=== PATIENT | male | born 1945 | race African-American/Black ===

== ENCOUNTER 2017-12-06 22:46 | Emergency (ER) | payer MEDICARE, MEDICAID ==
[~2017-12-06] VITALS: Ht 180.3 cm; Wt 63.2 kg
[~2017-12-06 22:46] MED LIST: ASPIR-LOW81 MG PO; ASPIR-LOX325 MG PO; ASPIRIN 81M81 MG/TA2 PO; BENADRYL; BENADRYL25 M2 PO; DIPHENHYDRAMINE25 M1 PO; LISINOPRIL10 MG PO; MULTIPLE VITAMI1 T14 PO; MVI PO; NABUMETONE500 MG PO; PERCOCET 500 MG1 TAB PO; PLAVIX300 MG PO; PRILOSEC PO; VITAMIN E PO
[2017-12-06 22:48] VITALS: BP 152/63; PULSE 100; TEMP 97
[2017-12-07] MEDS ORDERED: PLAVIX 75MG TAB75 MG PO (00:02)
[2017-12-07] MEDS ORDERED: LIPITOR 10MG10 MG PO (00:02)
[2017-12-07] MEDS ORDERED: NORVASC 5MG5 MG/TAB PO (00:02)
[2017-12-07 00:32] LABS: HEMOGLOBIN 11.1 g/dl (13.5-18.0); MEAN CELL VOLUME 95 fl (80.0-100.0); MEAN CORPUSCULAR HEMOGLOBIN 32 pg (27.0-31.0); MEAN CORPUSCULAR HGB CONC 33 g/dl (33.0-37.0); MEAN PLATELET VOLUME 10.2 fl (7.4-10.4); PLATELET COUNT 186 K/mm3 (130-400); REDCELL DISTRIBUTION WIDTH-CV 12.1 % (11.5-14.5)
[2017-12-07 00:38] LABS: HEMATOCRIT 33.3 % (42.0-52.0)
[2017-12-07 00:43] LABS: ALANINE AMINOTRANSFERASE 25 U/L (21-72); ALBUMIN 4.3 gm/dL (3.5-5.0); ALKALINE PHOSPHATASE 96 U/L (50-136); ANION GAP 10 mmol/L (7-16); AST,SGOT 25 U/L (15-37); BILIRUBIN,TOTAL 1.4 mg/dL (0.0-1.0); BLOOD UREA NITROGEN 13 mg/dL (9-20); CALCIUM 9.4 mg/dL (8.4-10.2); CARBON DIOXIDE 26 mmol/L (22-30); CHLORIDE 96 mmol/L (98-107); CREATININE, serum 1.39 mg/dL (0.66-1.25); GLUCOSE 111 mg/dL (74-106); LIPASE 31 U/L (23-300); POTASSIUM 4.8 mmol/L (3.4-5.0); SODIUM 131 mmol/L (137-145); TOTAL PROTEIN 7.6 gm/dL (6.4-8.2)
[2017-12-07 00:47] LABS: ALCOHOL(ethanol),MEDICAL < 10 mg/dL
[2017-12-07 00:53] LABS: TROPONIN-I < 0.012 ng/mL (0.000-0.034)
[2017-12-07 01:47] LABS: BAND 5 % (0-10); EOSINOPHIL 2 % (0-4); HYPOCHROMIA 1+; LYMPHOCYTE 5 % (20.0-51.0); METAMYELOCYTE 2 % (0-0); NEUTROPHILS 76 % (42.0-75.2); PLATELET ESTIMATE NORMAL (NORMAL)
[2017-12-07 01:49] LABS: STOMATOCYTE 1+
[2017-12-07 03:20] LABS: COLLECTION METHOD CLEAN CATCH
[2017-12-07 03:25] LABS: PH 6 (5-8); SQUAMOUS EPITHELIAL 0-2 /hpf; URINE APPEARANCE Clear; URINE BACTERIA None Seen /hpf; URINE BILIRUBIN Negative (NEGATIVE); URINE BLOOD Negative (NEGATIVE); URINE COLOR Yellow; URINE GLUCOSE Negative (NEGATIVE); URINE KETONE Trace (NEGATIVE); URINE LEUKOCYTE ESTERASE Negative (NEGATIVE); URINE NITRATE Negative (NEGATIVE); URINE PROTEIN(semi-quant) Negative (NEGATIVE); URINE RBC 0-2 /hpf; URINE UROBILINOGEN Negative (NEGATIVE)
[2017-12-07] MEDS ORDERED: FLEXERIL5 MG PO (05:03)
[2017-12-07] MEDS ORDERED: CEFTIN500 MG PO (05:03)
[2017-12-07] MEDS ORDERED: NORCO 325 MG-51 TAB PO (05:03)
[2017-12-07] MEDS ORDERED: PROTONIX 40MG T40 MG PO (05:03)
[2017-12-07] MEDS ORDERED: ZOFRAN ODT4 MG PO (05:03)
== END 2017-12-07 06:20 | disposition home or self-care (01) ==
LOC: COL.ER 22:46
PROVIDERS: Emergency Medicine
DX: K29.70 Gastritis, unspecified, without bleeding (principal); G89.29 Other chronic pain; M54.5 Low back pain; I10 Essential (primary) hypertension; F17.210 Nicotine dependence, cigarettes, uncomplicated; Z86.73 Personal history of transient ischemic attack (TIA), and cerebral infarction without residual deficits; Z79.02 Long term (current) use of antithrombotics/antiplatelets
CPT/HCPCS: J0696; J2405; J3010; J7030

== ENCOUNTER 2020-07-27 14:15 | Outpatient (RCR) | payer MEDICARE, MEDICAID ==
[~2020-07-27 14:15] MED LIST changes: +CEFTIN500 MG PO; +FLEXERIL5 MG PO; +LIPITOR 10MG10 MG PO; +NORCO 325 MG-51 TAB PO; +NORVASC 5MG5 MG/TAB PO; +PLAVIX 75MG TAB75 MG PO; +PROTONIX 40MG T40 MG PO; +ZOFRAN ODT4 MG PO
[2020-10-06] MEDS ORDERED: MORPHINE 1515 MG/TAB PO (06:43)
[2020-10-06] MEDS ORDERED: ISTALOL 2.5 ML2.5 ML OU (06:48)
[2020-10-06] MEDS ORDERED: HYDROCORTISONE30 G3 TP (09:31)
== END 2020-10-04 | disposition home or self-care (01) ==
LOC: MKS.ESL.PT
DX: M75.101 Unspecified rotator cuff tear or rupture of right shoulder, not specified as traumatic (principal); M54.5 Low back pain; Z98.890 Other specified postprocedural states

== ENCOUNTER → 2020-10-06 | Outpatient (CLI) | payer MEDICARE, MEDICAID ==
[~2020-10-06] VITALS: Ht 180.3 cm; Wt 57.7 kg
[~2020-10-06] MED LIST changes: +HYDROCORTISONE30 G3 TP; +ISTALOL 2.5 ML2.5 ML OU; +MORPHINE 1515 MG/TAB PO
[2020-10-06 09:32] VITALS: BP 140/64; PULSE 69
--- NOTE | 2020-10-06 10:17 | NUR ---
PROCEDURE WAS CNACELLED BY DR MACK
== END ==
LOC: COL.RAD 08:00
DX: Z01.812 Encounter for preprocedural laboratory examination (principal); K86.89 Other specified diseases of pancreas; K55.1 Chronic vascular disorders of intestine; I87.1 Compression of vein
CPT/HCPCS: Q9967

== ENCOUNTER 2021-04-05 17:54 | Inpatient (IN) | payer MEDICARE, MEDICAID ==
[~2021-04-05] VITALS: Ht 177.8 cm; Wt 46.9 kg
[2021-04-05 18:55] LABS: BASO % 0.5 % (0.0-2.0); EOS % 0.3 % (0.0-4.0); GRAN # 2.3 K/mm3 (1.4-6.5); GRAN % 61.3 % (42.2-75.2); HEMOGLOBIN 11.5 g/dl (13.5-18.0); LYMPH # 1.2 K/mm3 (1.2-3.4); LYMPH % 30.3 % (20.0-51.0); MEAN CELL VOLUME 95 fl (80.0-100.0); MEAN CORPUSCULAR HEMOGLOBIN 31 pg (27-31); MEAN CORPUSCULAR HGB CONC 33 g/dl (33.0-37.0); MEAN PLATELET VOLUME 11.6 fl (7.4-10.4); MONO # 0.3 K/mm3 (0.1-0.6); MONO % 7.1 % (1.7-9.3); PLATELET COUNT 124 K/mm3 (130-400); RED BLOOD COUNT 3.74 M/mm3 (4.20-5.60); REDCELL DISTRIBUTION WIDTH-CV 14.5 % (11.5-14.5)
[2021-04-05 18:57] LABS: HEMATOCRIT 35.4 % (42.0-52.0)
[2021-04-05 19:14] LABS: ALBUMIN 4.1 gm/dL (3.4-4.8); BILIRUBIN,TOTAL 2.4 mg/dL (0.2-1.2); CALCIUM 8.9 mg/dL (8.4-10.2); CREATININE, serum 1.63 mg/dL (0.72-1.25); POTASSIUM 4.9 mmol/L (3.5-4.5); TOTAL PROTEIN 7.2 gm/dL (6.2-8.1)
[2021-04-05 21:01] LABS: MAGNESIUM 2.5 mg/dL (1.6-2.6); PHOSPHOROUS 3.6 mg/dL (2.3-4.7)
[2021-04-05 22:22] LABS: COLLECTION METHOD CLEAN CATCH
[2021-04-05 22:36] LABS: PH 6 (5-8); URINE APPEARANCE Clear (CLEAR/HAZY); URINE BACTERIA None Seen /hpf (NONE SEEN); URINE BILIRUBIN Negative (NEGATIVE); URINE BLOOD Negative (NEGATIVE); URINE COLOR Yellow (YELLOW); URINE GLUCOSE Negative (NEGATIVE); URINE KETONE 1+ (NEGATIVE); URINE LEUKOCYTE ESTERASE Negative (NEGATIVE); URINE NITRATE Negative (NEGATIVE); URINE PROTEIN(semi-quant) Negative (NEGATIVE); URINE RBC None Seen /hpf (0-2); URINE UROBILINOGEN Negative (NEGATIVE)
[2021-04-05] MEDS ORDERED: LIPITOR 40MG TA40 MG PO (23:38)
[2021-04-05] MEDS ORDERED: NEURONTIN300 MG/CAP PO (23:38)
[2021-04-05] MEDS ORDERED: ACULAR 10 ML10 ML OU (23:40)
[2021-04-05] MEDS ORDERED: PREDFORTE15ML OU (23:42)
[2021-04-06] VITALS (7 sets, daily range): BP systolic 118–145; BP diastolic 55–69; PULSE 52–87; TEMP 97.5–98.1
--- NOTE | 2021-04-06 05:53 | NUR ---
PT HAD AN UNEVENTFUL NIGHT. PT ARRIVED TO FLOOR VIA WHEELCHAIR AROUND 2230. PT FELL ASLEEP DURING INITIAL ADMISSION ASSESSMENT, PT HAS HEARING AIDS, BUT DO NOT SEEM TO WORK APPROPRIATELY. PT DENIES PAIN, PT SLEPT REST OF NIGHT. IV FLUIDS RUNNING. CALL LIGHT IN REACH, PT USES APPROPPRIATELY, PT IS VERY UNSTEADY ON FEET.
[2021-04-06 06:23] LABS: MEAN CELL VOLUME 95 fl (80.0-100.0); MEAN CORPUSCULAR HGB CONC 32 g/dl (33.0-37.0); MEAN PLATELET VOLUME 11.6 fl (7.4-10.4); PLATELET COUNT 97 K/mm3 (130-400); RED BLOOD COUNT 3.08 M/mm3 (4.20-5.60); REDCELL DISTRIBUTION WIDTH-CV 14.4 % (11.5-14.5)
[2021-04-06 06:32] LABS: HEMATOCRIT 29.2 % (42.0-52.0); HEMOGLOBIN 9.4 g/dl (13.5-18.0); MEAN CORPUSCULAR HEMOGLOBIN 31 pg (27-31)
[2021-04-06 06:37] LABS: CALCIUM 8.3 mg/dL (8.4-10.2); CREATININE, serum 1.28 mg/dL (0.72-1.25); POTASSIUM 4.2 mmol/L (3.5-4.5)
[2021-04-06 08:08] LABS: BAND 1 % (0-10); BASOPHIL 1 % (0-2); LYMPHOCYTE 25 % (20.0-51.0); NEUTROPHILS 63 % (42.0-75.2); PLATELET ESTIMATE DECREASED (NORMAL)
--- NOTE | 2021-04-06 09:46 | NUR ---
Call made to patient's son. He plans to visit today and agreed to talk with me at patient's bedside when he arrives.
--- NOTE | 2021-04-06 11:28 | NUR ---
THIS PATIENT IS VERY HARD OF HEARING. IT IS DIFFICULT TO HAVE HIM RESPOND DUE TO THIS. DESPITE HOW LOUD I DID GET, HE WAS STILL HAVING DIFFICULTY AND DID NOT ANSWER APPROPRIATELY UNTIL HE COULD HEAR WHAT WAS ASKED, THEN HE WAS ABLE TO ANSWER APPROPRIATELY. CONCERNS FOR LIMITED KNOWLEDGE BASED ON INABILITY TO HEAR US.
--- NOTE | 2021-04-06 13:04 | NUR ---
Met with patient and son Francisco Javier alone then again with Dr. Osborne. Patient very hard of hearing and unsure how much of the information he understood but we attempted to explain that the pancreatic cancer is advancing and there is no cure. Patient stated he was not comfortable making a decision on his own at this time and Francisco Javier stated he would talk with his sister and aunt about everything and get back to us. I explained hospice options and provided my contact information.
--- NOTE | 2021-04-06 14:40 | NUR ---
Commissary Agent contacted patient's son, Francisco Javier (ph#[phone]) to discuss discharge planning. Patient lives in [place] and Francisco Javier advised he lives with patient. Patient sees Dr. Milner for primary care and obtains medications from [facility], however Francisco Javier does not think patient has been taking his medications. Patient has a cane if needed and Francisco Javier advised patient has been mostly independent with ADLS, but is not as independent as he once was. Francisco Javier believes patient has been doing bed baths instead of getting into the tub or taking a shower. Francisco Javier does not believe patient has any Advance Directives. TEVIN left TEVIN Smith at patient's PCP office to check on any Advance Directives. There are none in EMR. Per Francisco Javier, patient is and has two children: Francisco Javier and Fabiola (ph#[phone]). Patient's children are his legal next of kin. Palliative Consult ordered. Francisco Javier advised that his father wants to think about his "final decision" over the weekend. Francisco Javier states he also is going to talk with his aunt and sister about goals of care. Discharge Plan: Unknown at this time, family is discussing goals of care with patient.
--- NOTE | 2021-04-06 15:53 | NUR ---
Scow Hand collaborated with TEVIN Smith at PCP office. Serina faxed over [facility]- which designates patient's son, Ho "Francisco Javier" Elvis and patient's sister, Gerhard. TEVIN placed copy on chart and updated palliative RNMarisa.
--- NOTE | 2021-04-06 20:30 | NUR ---
Initial shift assessment done- pt resting quietly,, very, very [place], hard to communicate with-- states he wants to sleep, states has some abd pain 2/10, Up to bathroom with one assist, steady on feet.
[2021-04-07 04:27] VITALS: BP 109/57; PULSE 66; TEMP 97.8
--- NOTE | 2021-04-07 05:14 | NUR ---
Quiet night- VSS, Up to bathroom with assist x3 during the night.
--- NOTE | 2021-04-07 07:01 | NUR ---
PT LAYING IN BED. DOES NOT NEED ANYTHING AT THIS TIME.
[2021-04-07 07:51] LABS: CALCIUM 8.5 mg/dL (8.4-10.2); CREATININE, serum 1.34 mg/dL (0.72-1.25); POTASSIUM 4.4 mmol/L (3.5-4.5)
[2021-04-07 08:11] LABS: BASO % 0.9 % (0.0-2.0); EOS % 0.9 % (0.0-4.0); GRAN # 2.3 K/mm3 (1.4-6.5); LYMPH # 1.5 K/mm3 (1.2-3.4); LYMPH % 35.1 % (20.0-51.0); MEAN CELL VOLUME 92 fl (80.0-100.0); MEAN CORPUSCULAR HGB CONC 34 g/dl (33.0-37.0); MONO # 0.5 K/mm3 (0.1-0.6); MONO % 10.6 % (1.7-9.3); PLATELET COUNT 103 K/mm3 (130-400); RED BLOOD COUNT 3.01 M/mm3 (4.20-5.60); REDCELL DISTRIBUTION WIDTH-CV 14.4 % (11.5-14.5)
[2021-04-07 08:12] LABS: HEMATOCRIT 27.8 % (42.0-52.0); HEMOGLOBIN 9.3 g/dl (13.5-18.0); MEAN CORPUSCULAR HEMOGLOBIN 31 pg (27-31)
[2021-04-07 09:12] VITALS: BP 136/48; PULSE 79; TEMP 97.3
[2021-04-07 11:34] VITALS: BP 126/64; PULSE 67; TEMP 98
[2021-04-07 16:21] VITALS: BP 117/49; PULSE 69; TEMP 98.1
--- NOTE | 2021-04-07 18:24 | NUR ---
PT HAS BEEN SLEEPING ALL DAY LONG. THE PATIENT'S SON DID STOP BY AND AFTER THE SON LEFT, THE PATIENT HAD A BOUGHT OF INCONTINENT STOOL. THE PATIENT IS VERY EMBARASSED. DENIES ANY OTHER NEEDS AT THIS TIME.
[2021-04-07 19:45] VITALS: BP 112/55; PULSE 75; TEMP 97.9
--- NOTE | 2021-04-07 21:00 | NUR ---
Initial shift assessment done- has been resting-- did not drink any of his clear liquid supper tray-- did try to offer but patient did not want-- was able to drink about 1/2 small glass of some water-denies any pain tonight, alert/oriented- difficult to communicate with due to being very [place], Up to bathroom with walker- steady. VSS.
[2021-04-08] VITALS (7 sets, daily range): BP systolic 111–139; BP diastolic 45–63; PULSE 59–77; TEMP 97.3–98.5
--- NOTE | 2021-04-08 05:05 | NUR ---
Quiet night, VSS, no requests,denies pain
[2021-04-08 06:34] LABS: CALCIUM 8.4 mg/dL (8.4-10.2); CREATININE, serum 1.35 mg/dL (0.72-1.25); POTASSIUM 3.6 mmol/L (3.5-4.5)
--- NOTE | 2021-04-08 09:45 | NUR ---
PT AOX4, PLEASANT, SHISHMAREF IRA, MEDICATIONS GIVEN, PT REPORTS MILD ABD PAIN, TYLENOL GIVEN, PT REPORTS HUNGER, JELLO WAS GIVEN PER REQUEST, WILL ADDRESS DIET WITH DR. DUMONT, BOWEL SOUNDS HYPOACTIVE, CALL LIGHT WITHIN REACH, NO OTHER NEEDS
--- NOTE | 2021-04-08 10:01 | NUR ---
PT REQUESTING MORE FOOD OPTIONS, DR. DUMONT NOTIFIED AND VERBAL ORDER PROVIDED FOR GENERAL DIET
--- NOTE | 2021-04-08 18:37 | NUR ---
UNEVENTFUL SHIFT, DENIES PAIN IN ABD AT THIS TIME
[2021-04-09 03:16] VITALS: BP 110/52; PULSE 88; TEMP 98.5
[2021-04-09 07:54] VITALS: BP 96/54; PULSE 79; TEMP 98
--- NOTE | 2021-04-09 09:57 | NUR ---
Call made to daughter Fabiola #[phone]. Was able to clarify treatment options and what hospice would look like. She is in [place] but will try to reach her brother and aunt that are local and get back to us with questions and possibly a decision of goals of care.
--- NOTE | 2021-04-09 11:05 | NUR ---
Discussed patient with son Francisco Javier as he is in the hospital visiting. He stated he would call his sister and talk about options and get back to me.
[2021-04-09 11:19] VITALS: BP 110/55; PULSE 90; TEMP 98
--- NOTE | 2021-04-09 15:02 | NUR ---
perinatal social worker attended family meeting between the patient's hospitalist, palliative care RN, patient's son and patient's daughter attends via speaker phone. Patient is able to verbalize that he does not want to do chemo and wants to be somewhere where "people know what they're doing". Patient is able to verbalize his understanding that hospice would mean he is not actively getting treatment. Patient's family and patient agree that [facility] and [facility] are not an option. Options of [facility] and [facility]. Referrals sent to both and son is to go [facility].
[2021-04-09 16:00] VITALS: BP 115/56; PULSE 86; TEMP 98.1
--- NOTE | 2021-04-09 16:02 | NUR ---
Yesica from [facility] cannot take patient due to not having a hospice bed available. Referral faxed to [facility].
--- NOTE | 2021-04-09 16:29 | NUR ---
Davis with [facility] reports that they would not be able to accept this patient until the end of this week at the earliest. Informed Davis that the patient verbalized he does not want to do hospice in the home. During family meeting, patient's son states that he does work but "will make something happen" to have someone with the patient 14/10. Due to lack of supports at home, hospice in a facility would be a better option for this patient.
[2021-04-09 19:45] VITALS: BP 106/41; PULSE 104; TEMP 98.2
--- NOTE | 2021-04-09 20:58 | NUR ---
Patient assessed around 2014. Alert, oriented. Denies pain and discomfort at this time. Denies SOB and dyspnea. High fall risk precautions in place. In bed with call light within reach. Bed alarm on. Voices no questions, needs, or concerns at this time.
--- NOTE | 2021-04-10 05:34 | NUR ---
Patient has been resting in bed. Has denied pain and discomfort this shift. Voices no questions, needs, or concerns at this time. Continues on comfort care.
[2021-04-10 07:38] VITALS: BP 107/55; PULSE 93; TEMP 98.2
--- NOTE | 2021-04-10 08:00 | NUR ---
PT DENIES PAIN IN ABD AT THIS TIME, AOX4, VERY TELLER, PT BOOSTED IN BED, MEDICATIONS GIVEN, ASSESSMENT PERFORMED, BREAKFAST PROVIDED FOR PT, NO OTHER NEEDS, CALL LIGHT WITHIN REACH, PT AMBULATORY WITH WALKER
--- NOTE | 2021-04-10 12:43 | NUR ---
Pt asleep when I went to visit with no family in room. Awaiting hospice bed to open up at this time.
--- NOTE | 2021-04-10 15:07 | NUR ---
Annette, palliative care RN, notified TEVIN that she was in contact with Davis at the hospice house and they should be able to take the patient sooner now, due to a bed opening up. The hospice house just needs to find a doctor that will follow the patient, due to the patient's PCP not following patient's there. TEVIN contacted and updated patient's son, Francisco Javier. He is in agreement to the plan.
--- NOTE | 2021-04-10 17:18 | NUR ---
PT EAGER FOR DISCHARGE, PT MENTIONS MULTIPLE TIMES HE DOES NOT KNOW WHY HE'S HERE, PT DENIES DIARRHEA DURING SHIFT, PT GOT UP MULTIPLE TIMES ON HIS OWN BUT STEADY, BED ALARM SET. ATIVAN GIVEN PER DETOX SCORING, /GF VISITED EARLIER IN SHIFT, NICOTINE PATCH ORDERED FOR PT, NO OTHER NEEDS
--- NOTE | 2021-04-10 17:39 | NUR ---
PT PLEASANT, C/O PAIN IN AM, ROXANOL GIVEN, NONE SINCE. C/O AT DINNER OF FOOD "NOT AGREEING WITH MY STOMACH", APPLE PIE AND ICE CREAM ORDERED PER PT REQUEST. PT GRANDSON IN ROOM, CALL LIGHT WITHIN REACH, NO OTHER NEEDS
[2021-04-10 20:38] VITALS: BP 99/45; PULSE 86; TEMP 98.2
[2021-04-11] MEDS ORDERED: RT ALBUTER2.5 MG/0.5 IH (09:20)
[2021-04-11] MEDS ORDERED: ATIVAN 1MG T1 MG/TAB PO (09:21)
[2021-04-11] MEDS ORDERED: ROXANOL 20MG20 MG/ML SL (09:21)
[2021-04-11] MEDS ORDERED: TYLENOL 325MG325 MG PO (09:21)
[2021-04-11] MEDS ORDERED: DULCOLAX S10 MG/SUPP RC (09:22)
[2021-04-11] MEDS ORDERED: SYSTANE 0.3-0.1 EACH OP (09:22)
[2021-04-11] MEDS ORDERED: TRANSDERM-0.5 MG/21 TD (09:23)
[2021-04-11] MEDS ORDERED: ZOFRAN ODT4 MG PO (09:23)
--- NOTE | 2021-04-11 09:45 | NUR ---
PT VERY HARD OF HEARING. CURRENTLY ALERT AND SITTING UP IN BED EATING BREAKFAST. DENIES ANY PAIN OR DISCOMFORT ATT.
--- NOTE | 2021-04-11 11:22 | NUR ---
First visit from the blue line operator. No needs right now.
--- NOTE | 2021-04-11 15:00 | NUR ---
Davis, with [facility], reports that they had to transition one of their home clients into the hospice house today. She reports that they will not be able to take the patient today now, but is hopeful to soon. She reports that she is also still waiting on a response from the patient's PCP, Dr. Milner. TEVIN contacted and updated the patient's son, Francisco Javier. Francisco Javier confirms that they would not want the patient to go to [facility]. The family also previously clarified that they did not want [facility] either. TEVIN updated RN and the PA. TEVIN also contacted Yesica at [facility] to follow up on if a bed has opened up there. Yesica reports that a bed has not opened up yet, but she would notify TEVIN if one does.
--- NOTE | 2021-04-11 18:37 | NUR ---
PT PLEASANT, AOX4, VERY [place], SON UPDATED MULTIPLE TIMES, PT REPORTING GAS PAIN, ROXANOL GIVEN, APPLE PIE ORDERED WITH DINNER PER PT REQUEST, PT REPOSITIONED IN BED, NO OTHER NEEDS
--- NOTE | 2021-04-11 21:40 | NUR ---
Patient is resting in bed, sleeping, easily arousable. Denies pain, repositioned. Expressed pain while moving him. Hear rate irregular. Assessment completed, medications provided. No further needs at this time. Call light within reach, bed alarm on.
--- NOTE | 2021-04-12 06:22 | NUR ---
Patient has had an uneventful night. He was assisted to the restroom once. He requested something to eat. Refused to take nutritional supplement. Chocolate pudin provided. Right now continue sleeping. Report will be given to day RN.
--- NOTE | 2021-04-12 11:18 | NUR ---
Call made to patient's son Francisco Javier to discuss discharge options. During the conversation Francisco Javier stated he did not want the patient at [facility] or [facility] with hospice so he would look at taking him home temporarily until the hospice house can accept the patient. Francisco Javier is contacting family and friends to see if anyone would be able to help his father while he is at work or if he has to leave. We plan to touch base later today to give him time to ask around. Call made to [facility], spoke with Rocco, she stated that they can accept the patient in the field today if it is determined to be a safe option for the patient. Notified SW of the discussions.
--- NOTE | 2021-04-12 12:47 | NUR ---
odd job worker contacted Davis at [facility] and confirmed that they can accept patient Friday late morning.
--- NOTE | 2021-04-12 12:47 | NUR ---
Received call from TEVIN that hospice house should be able to take patient tomorrow. Notified son Francisco Javier of the plan but reminded him to keep his back up plan of taking his dad home with hospice services available in case something changes overnight. Francisco Javier plans to come in and see his father this afternoon so I will check back to make sure the plan is clear and that all his questions have been answered.
--- NOTE | 2021-04-12 15:20 | NUR ---
rock room worker ordered an ambulance with [facility] to transport patient to [facility] 04/13/21 at 11:30am. Davis with [facility] states they can accept on Friday04/13/2021.
--- NOTE | 2021-04-12 19:37 | NUR ---
PT HAD UNEVENTFUL DAY. REQUIRED SMALL DOSE OF ROXANOL FOR PAIN HE WAS YELLING OUT FOR. DISCUSSED WITH FAMILY. PLAN TO DISCHARGE TO HOSPICE HOUSE TOMORROW AT 1130.
--- NOTE | 2021-04-13 06:45 | NUR ---
REPORT RECEIVED FROM TAMMY BRANTLEY. BEDSIDE CHECK DONE. PT LAYING IN BED AND GROANING. STATES THAT HE IS HAVING PAIN. REQUESTED TYLENOL. GOT TYLENOL FOR PT AND PATIENTS STATES THAT HE IS "NOT SURE WHAT THAT IS GOING TO DO." OFFERED PT PRN MEDICATION, MORPHINE. STATES THAT WOULD WOULD LIKE TO HAVE THAT "IF IT WONT KNOCK HIM OUT." OFFERED LOWER DOSE FOR PT. PT AGREED. PT REPOSITIONED IN BED, AND MEDICATION GIVE. COVID SWAB ALSO PERFOMRED AND OTHER MEDICATIONS GIVED. VOICED NO OTHER NEEDS ATT. WILL CONITUNE TO MONITOR.
--- NOTE | 2021-04-13 07:17 | NUR ---
ASSESSMENT COMPLETE FOR THIS SHIFT. PT VERY HARD OF HEARING. PT COMPLAINED OF BEING VERY HUNGRY, BUT DIDN'T LIKE HIS DINNER. PT WANTED ICE CREAM AND A BROWNIE. WE DIDN'T HAVE BROWNIES, BUT PT WAS GIVEN ICE CREAM AND PUDDING. PT SAID NO TO EVERYTHING ELSE WE DID HAVE ON THE UNIT/FLOOR. PT ALSO COMPLAINED OF BEING COLD. PT GIVEN SEVERAL WARM BLANKETS THROUGHOUT THE NIGHT. PT DENIED NEED FOR PAIN MANAGEMENT TONIGHT. PT EXPRESSED NO OTHER NEEDS AT THIS TIME. CALL LIGHT WITHIN REACH.
--- NOTE | 2021-04-13 08:03 | NUR ---
REPLACED PT'S HEARING AID BATTERY AT THIS TIME. PT STATES THAT HIS PAIN HAS BEEN ALLEVIATED BY THE ORAL 5MG ROXANOL. PT AWAKE AND ALERT, NOT DROWSY AT ALL FROM THE MEDICATION WHICH IS SOMETHING THE FAMILY WAS CONCERNED ABOUT WHEN ADMINISTERING ROXANOL. RESPIRATIONS WNL, NO RESPIRATORY DEPRESSION NOTED. NO FURTHER CONCERNS.
--- NOTE | 2021-04-13 10:00 | NUR ---
The patient is to discharge today, 04/13, to the [facility]. Transportation was scheduled at 1130, via [facility]. TEVIN informed the patient, his son (Francisco Javier), and RN of the time. TEVIN confirmed the time with Cris at [facility]. TEVIN also read the IM and EMS Consent Form outloud to Francisco Javier over the phone. Francisco Javier verbalized understanding and gave SW approval to sign the forms on his behalf. No additional needs at this time.
--- NOTE | 2021-04-13 11:40 | NUR ---
[facility]
== END 2021-04-13 11:40 | disposition hospice, inpatient (51) | DRG 435 ==
LOC: COL.ER 17:54 → MEDICAL 21:00
PROVIDERS: Family Medicine; Internal Medicine; Nurse Practitioner Family; Physician Assistant; ADMIT Student in an Organized Health Care Education/Training Program
DX: C25.9 Malignant neoplasm of pancreas, unspecified (principal); E43 Unspecified severe protein-calorie malnutrition; E87.2 Acidosis; D61.818 Other pancytopenia; N17.9 Acute kidney failure, unspecified; Z68.1 Body mass index [BMI] 19.9 or less, adult; E86.0 Dehydration; E78.5 Hyperlipidemia, unspecified; E87.5 Hyperkalemia; F17.210 Nicotine dependence, cigarettes, uncomplicated; I12.9 Hypertensive chronic kidney disease with stage 1 through stage 4 chronic kidney disease, or unspecified chronic kidney disease; N18.9 Chronic kidney disease, unspecified; R59.1 Generalized enlarged lymph nodes; Z20.822 Contact with and (suspected) exposure to COVID-19; Z86.73 Personal history of transient ischemic attack (TIA), and cerebral infarction without residual deficits; Z23 Encounter for immunization
CPT/HCPCS: 99222-AI; 99231-AI; 99232-AI; 99233-AI; 99239; J1644; J2405; J7030; J7120

== ENCOUNTER → 2021-08-14 14:35 | Outpatient (RCR) | payer MEDICARE, MEDICAID ==
[~2021-08-14 14:35] MED LIST changes: +ACULAR 10 ML10 ML OU; +ATIVAN 1MG T1 MG/TAB PO; +DULCOLAX S10 MG/SUPP RC; +LIPITOR 40MG TA40 MG PO; +NEURONTIN300 MG/CAP PO; +PREDFORTE15ML OU; +ROXANOL 20MG20 MG/ML SL; +RT ALBUTER2.5 MG/0.5 IH; +SYSTANE 0.3-0.1 EACH OP; +TRANSDERM-0.5 MG/21 TD; +TYLENOL 325MG325 MG PO
== END | disposition home or self-care (01) ==
LOC: MKS.ESL.PT 10-05 11:00
DX: M54.50 Low back pain, unspecified (principal)